=== PATIENT | female | born 1985 | race African-American/Black ===

== ENCOUNTER 2017-01-13 15:09 | Emergency (ER) | payer OTHER ==
[~2017-01-13] VITALS: Ht 170.2 cm; Wt 45.4 kg
[2017-01-13] MEDS ORDERED: VENTOLIN HFA 1818 GM INH (16:30)
[2017-01-13] MEDS ORDERED: PREDNISONE 20 M20 MG PO (16:30)
== END 2017-01-13 17:50 | disposition home or self-care (01) ==
LOC: ER 15:09
DX: J42 Unspecified chronic bronchitis (principal); J98.01 Acute bronchospasm; F17.210 Nicotine dependence, cigarettes, uncomplicated; Z71.6 Tobacco abuse counseling

== ENCOUNTER 2018-01-15 18:42 | Emergency (ER) | payer OTHER ==
[~2018-01-15] VITALS: Ht 170.2 cm; Wt 45.4 kg
[~2018-01-15 18:42] MED LIST: PREDNISONE 20 M20 MG PO; VENTOLIN HFA 1818 GM INH
[2018-01-15 19:17] LABS: ABSOLUTE NEUTROPHILS 2.7 thou/uL (1.4-8.2); BASOPHILS 1.2 % (0.0-2.0); EOSINOPHILS 8.2 % (0.0-3.0); HEMATOCRIT 36.1 % (37.0-47.0); HEMOGLOBIN 11.7 gm/dL (12.0-15.0); LYMPHOCYTES 37.2 % (24.0-44.0); MCH 26.6 pg (26.0-34.0); MCHC 32.4 g/dL (28.0-37.0); MCV 82.3 fL (80.0-100.0); MONOCYTES 10.6 % (1.0-8.0); PLATELET COUNT 193 thou/uL (150-400); POLYS 42.8 % (36.0-66.0); RBC 4.39 mil/uL (4.20-5.00); WBC 6.2 thou/uL (4.0-11.0)
[2018-01-15] MEDS ORDERED: TESSALON PERLE100 MG PO (19:39)
== END 2018-01-15 20:31 | disposition home or self-care (01) ==
LOC: ER 18:42
PROVIDERS: Nurse Practitioner
DX: J06.9 Acute upper respiratory infection, unspecified (principal); F17.210 Nicotine dependence, cigarettes, uncomplicated

== ENCOUNTER 2019-07-28 18:15 | Emergency (ER) | payer BC ==
[~2019-07-28] VITALS: Ht 170.2 cm; Wt 45.4 kg
[2019-07-28 18:15] VITALS: BP 119/71
[~2019-07-28 18:15] MED LIST changes: +TESSALON PERLE100 MG PO
[2019-07-28] MEDS ORDERED: BACTRIM DS TAB1 EACH PO (18:52)
== END 2019-07-28 19:00 | disposition home or self-care (01) ==
LOC: ER 18:15
DX: L02.415 Cutaneous abscess of right lower limb (principal); F17.210 Nicotine dependence, cigarettes, uncomplicated

== ENCOUNTER 2019-12-27 10:44 | Inpatient (IN) | payer OTHER ==
[~2019-12-27] VITALS: Ht 170.2 cm
[~2019-12-27 10:44] MED LIST changes: +BACTRIM DS TAB1 EACH PO
[2019-12-27 10:50] VITALS: BP 120/69
[2019-12-27 14:20] LABS: HEMATOCRIT 34.5 % (37.0-47.0); MCH 26.3 pg (26.0-34.0); MCV 82.4 fL (80.0-100.0); RBC 4.19 mil/uL (4.20-5.00); RDW 15.4 % (10.5-14.5); WBC 6.4 thou/uL (4.0-11.0)
[2019-12-27 14:36] LABS: ALBUMIN 3.8 g/dL (3.4-5.0); CALCIUM 8.8 mg/dL (8.5-10.1); CREATININE 0.7 mg/dL (0.6-1.0); TOTAL BILIRUBIN 0.2 mg/dL (<0.1-1.0); TOTAL PROTEIN 7.9 g/dL (6.4-8.2)
[2019-12-27 14:37] LABS: POTASSIUM 2.6 mmol/L (3.5-5.1)
[2019-12-27 15:31] VITALS: BP 124/70
[2019-12-27 17:12] VITALS: BP 106/70
--- NOTE | 2019-12-27 18:51 | NUR ---
VSS-AFEBRILE. LINGS WHEEZY AND TIGHT IN ALL GOFF BILATERALLY. REMAINS ON ROOM AIR. OOB AD KRYSTLE-STEADY ON FEET. NO C/O PAIN. TOLERATED DINNER WITH NO REPORTS OF N/V. NON-PRODUCTIVE, NAGGING COUGH. ALL CONSENTS SIGNED ON ADMISSION, CALLS APPROPRIATELY FOR ANY NEEDED ASSISTANCE.
[2019-12-27 19:20] VITALS: BP 109/62
[2019-12-28 04:05] VITALS: BP 108/68
--- NOTE | 2019-12-28 04:31 | NUR ---
ASSESSMENT COMPLETED AT THE START OF SHIFT.PT DENIED PAIN SO FAR BUT REQUESTED FOR MUCINEX PRN FOR HER NAGGING UNPRODUCTIVE COUGH.PT UP ADLIB IN HR ROOM.PT'S POTASSIUM REPLACED ORDERED.PT RESTING ON HER BED AT THIS TIME.CALLS APPROPRIATELY FOR ASSISTANCE.IV ABX GIVEN ORDERED.CALL LIGHT WITHIN REACH.
[2019-12-28 06:03] LABS: ABSOLUTE NEUTROPHILS 3.6 thou/uL (1.4-8.2); BASOPHILS 0.1 % (0.0-2.0); HEMATOCRIT 31.7 % (37.0-47.0); HEMOGLOBIN 10.2 gm/dL (12.0-15.0); LYMPHOCYTES 12.6 % (24.0-44.0); MCH 26.5 pg (26.0-34.0); MCHC 32.1 g/dL (28.0-37.0); MCV 82.8 fL (80.0-100.0); PLATELET COUNT 169 thou/uL (150-400); POLYS 85.3 % (36.0-66.0); RBC 3.83 mil/uL (4.20-5.00); RDW 15.5 % (10.5-14.5); WBC 4.2 thou/uL (4.0-11.0)
[2019-12-28 06:20] LABS: CALCIUM 9.1 mg/dL (8.5-10.1); CREATININE 0.7 mg/dL (0.6-1.0)
[2019-12-28 06:23] LABS: POTASSIUM 3.7 mmol/L (3.5-5.1)
[2019-12-28 08:40] VITALS: BP 116/67
--- NOTE | 2019-12-28 14:52 | NUR ---
Assumed care of pt at 0700. Pt a&ox4. Denies pain. Non-productive cough. IV antibiotics infusing. Scheduled breathing treatments. Potassium replaced. up ad hien. Call light within reach. Will continue to monitor.
[2019-12-28 16:51] LABS: URINE BILIRUBIN NEGATIVE (Negative); URINE BLOOD TRACE (Negative); URINE CLARITY CLEAR; URINE COLOR YELLOW; URINE GLUCOSE-RANDOM* NEGATIVE (Negative); URINE KETONES NEGATIVE (Negative); URINE LEUKOCYTES-REFLEX NEGATIVE (Negative); URINE NITRITE-REFLEX NEGATIVE (Negative); URINE PROTEIN (DIPSTICK) NEGATIVE (Negative); URINE SPECIFIC GRAVITY 1.025 (1.005-1.035)
[2019-12-28 17:55] VITALS: BP 105/53
[2019-12-28 20:55] VITALS: BP 104/62
--- NOTE | 2019-12-29 02:33 | NUR ---
PT C/O PAIN ON HER THROAT AT START OF SHIFT,DEEP SEA DIVER ON DUTY NOTIFIED,ORDER NOTED FOR CEPACOL,ORDER CARRIED OUT.UP ADLIB IN HER ROOM.PT STILL HAVE THE NON PRODUCTIVE COUGH,ENCOURAGED TO INCREASE FLUID INTAKE.PT RESTING ON HER BED AT THIS TIME.CALL LIGHT WITHIN REACH.
[2019-12-29 05:20] VITALS: BP 99/48
[2019-12-29 08:31] VITALS: BP 100/53
[2019-12-29 15:27] LABS: HEMATOCRIT 32.5 % (37.0-47.0); HEMOGLOBIN 10.2 gm/dL (12.0-15.0); MCH 25.9 pg (26.0-34.0); MCHC 31.4 g/dL (28.0-37.0); MCV 82.4 fL (80.0-100.0); RBC 3.94 mil/uL (4.20-5.00); RDW 16.2 % (10.5-14.5); WBC 12.5 thou/uL (4.0-11.0)
[2019-12-29 15:36] LABS: CALCIUM 9.3 mg/dL (8.5-10.1); CREATININE 0.9 mg/dL (0.6-1.0); MAGNESIUM 2.1 mg/dL (1.8-2.4); POTASSIUM 3.4 mmol/L (3.5-5.1)
[2019-12-29 17:51] VITALS: BP 121/73
--- NOTE | 2019-12-29 18:30 | NUR ---
PT ASSESSED AT START OF SHIFT. PT STATES FEELS SOME BETTER BUT STILL NOT ABLE TO EXPECTORATE MUCOUS W/ COUGH. COUGH VERY LOOSE, COARSE. DR. SEALS HERE THIS AFTERNOON AND CHANGED ORDERS. EATING AND DRINKING WELL. UP AD KRYSTLE.
[2019-12-29 20:30] VITALS: BP 114/54
--- NOTE | 2019-12-30 01:26 | NUR ---
ASSUMED CARE OF PT @2330 PT A&OX4 RESTING. UP AD KRYSTLE IN ROOM. PER REPORT PT REFUSED POTASIUM PILL. CALLED ONCALL AND POTASIUM SUSPENSION ORDERED ONE TIME. CALL LIGHT IN REACH WILL CONT TO MONITOR TILL EOS.
--- NOTE | 2019-12-30 02:14 | NUR ---
ASSESSMENT COMPLETED. PT ALERT AND ORIENTED X 4. CONTINUES TO HAVE CONGESTED COUGH. DENIES PAIN. PT NEEDS K+ REPLACED BUT SHE DOES NOT WANT THE ORAL K+ FOR NOW. LEVEL IS 3.4. WILL CHECK ALTENATIVE. REPORT GIVEN TO BRENDA WILKINS RN AT 2300 HRS.
[2019-12-30 05:30] VITALS: BP 112/65
[2019-12-30 08:42] VITALS: BP 113/54
[2019-12-30 17:21] VITALS: BP 113/65
--- NOTE | 2019-12-30 18:14 | NUR ---
ASSUMED CARE OF THE PT AT 0700. PTS LUNGS ARE COARSE AND CLEAR, VS ARE STABLE. PT IS AMBULATORY, NOT A FALL RISK. PT C/O PAIN WHEN COUGHING, PAIN MEDS GIVEN, SEE EMAR. PT HAS NOT COUGHED UP ANY SPUTUM. IV DRY AND INTACT. BED IN LOWEST POSITION AND CALL LIGHT IS WITHIN REACH. WILL CONTINUE TO MONITOR THE PT.
[2019-12-30 19:40] VITALS: BP 121/78
[2019-12-31 04:30] VITALS: BP 113/60
--- NOTE | 2019-12-31 04:45 | NUR ---
PT DENIED PAIN SO FAR.PT STILL WITH NON PRODUCTIVE COUGH.UP ADLIB TO THE BR.LAST BM WAS YESTERDAY.PT CONT ON IV STEROID.PT PROGRESSING SLOWLY TOWARDS DC GOALS.PT SLEEPING ON HER BED AT THIS TIME.CALL LIGHT WITHIN REACH.
[2019-12-31 08:04] VITALS: BP 117/76
[2019-12-31] MEDS ORDERED: AZITHROMYCIN500 MG PO (10:58)
[2019-12-31] MEDS ORDERED: ACETAMINOPHEN325 M1 PO (10:58)
[2019-12-31] MEDS ORDERED: ALBUTEROL2.5 MG/31 INH (10:58)
[2019-12-31] MEDS ORDERED: PROTONIX 20 MG20 M1 PO (10:58)
[2019-12-31] MEDS ORDERED: CLARITIN10 M2 PO (10:58)
[2019-12-31] MEDS ORDERED: SINGULAIR 10 MG10 M1 PO (10:58)
[2019-12-31] MEDS ORDERED: PROAIR HFA8.5 GM INH (10:58)
[2019-12-31] MEDS ORDERED: PREDNISONE 20 M20 MG PO (11:00)
[2019-12-31 12:03] VITALS: BP 117/76
--- NOTE | 2019-12-31 13:05 | NUR ---
Assumed care of pt at 0700. Pt alert and oriented x4. Up ad hien. IV antibiotics infused. Denies pain. Scripts handed to patient. Work note to return to work handed to patient. Discharging to home.
--- NOTE | 2020-01-02 15:48 | NUR ---
WAS NOTIFIED BY [employer] INSURANCE INSPECTOR PT WAS DC'D ON 12/31/19 AND IS NEEDING A NEBULIZER AND ALBUTEROL FOR HOME. FAXED REFERRAL FOR NEBULIZER/MED TO [facility] SPOKE WITH ANDRA AT [facility] AND THEY CAN SUPPLY THE NEBULIZER BUT NOT THE MED. TRIED NOTIFYING PT BUT NOT ANSWER OF VOICEMAIL SO I NOTIFIED PT'S MOTHER AND SPOKE WITH HER SHE WILL SEE IF PT HAS A SCRIPT FROM [place] FOR THE ALBUTEROL IF NOT I HAVE THE SCRIPT HERE IN MY OFFICE AND MOTHER WILL UTILIZATION SUPERVISOR.
== END 2019-12-31 13:00 | disposition home or self-care (01) | DRG 203 ==
LOC: ER 10:44 → 4S 14:30 → EROBS 14:30 → 4S 16:00
PROVIDERS: Emergency Medicine; Internal Medicine; Nurse Practitioner; ADMIT Hospitalist
DX: J45.901 Unspecified asthma with (acute) exacerbation (principal); J06.9 Acute upper respiratory infection, unspecified; F17.210 Nicotine dependence, cigarettes, uncomplicated; E87.6 Hypokalemia; Z79.899 Other long term (current) drug therapy
CPT/HCPCS: 10102

== ENCOUNTER 2020-07-18 19:19 | Emergency (ER) | payer OTHER ==
[~2020-07-18] VITALS: Ht 170.2 cm; Wt 45.4 kg
[~2020-07-18 19:19] MED LIST changes: +ACETAMINOPHEN325 M1 PO; +ALBUTEROL2.5 MG/31 INH; +AZITHROMYCIN500 MG PO; +CLARITIN10 M2 PO; +PROAIR HFA8.5 GM INH; +PROTONIX 20 MG20 M1 PO; +SINGULAIR 10 MG10 M1 PO
[2020-07-18] MEDS ORDERED: ACCUNEB SO1.25 MG/1 INH (19:24)
[2020-07-18] MEDS ORDERED: PROAIR HFA8.5 GM INH (20:13)
[2020-07-18] MEDS ORDERED: PREDNISONE 20 M20 MG PO (20:13)
[2020-07-18] MEDS ORDERED: ALBUTEROL2.5 MG/0.5 INH (20:13)
[2020-07-18 20:51] VITALS: BP 119/77
== END 2020-07-18 20:52 | disposition home or self-care (01) ==
LOC: ER 19:19
DX: J45.901 Unspecified asthma with (acute) exacerbation (principal); F17.210 Nicotine dependence, cigarettes, uncomplicated; Z79.899 Other long term (current) drug therapy

== ENCOUNTER 2021-10-24 12:20 | Emergency (ER) | payer OTHER ==
[~2021-10-24] VITALS: Ht 170.2 cm; Wt 45.4 kg
[~2021-10-24 12:20] MED LIST changes: +ACCUNEB SO1.25 MG/1 INH; +ALBUTEROL2.5 MG/0.5 INH
[2021-10-24 12:30] VITALS: BP 116/80
--- NOTE | 2021-10-24 21:10 | NUR ---
LEFT MESSAGE FOR PATIENT TO CALL BACK IN ORDER TO PROVIDE POSITIVE COVID TEST RESULTS. NUMBER MESSAGE LEFT AT [phone]
== END 2021-10-24 14:07 | disposition home or self-care (01) ==
LOC: ER 12:20
PROVIDERS: Nurse Practitioner
DX: U07.1 COVID-19 (principal); J06.9 Acute upper respiratory infection, unspecified; J45.909 Unspecified asthma, uncomplicated; F17.210 Nicotine dependence, cigarettes, uncomplicated